=== PATIENT | female | born 1970 | race Caucasian/White ===

== ENCOUNTER 2024-08-24 12:14 | Emergency (ER) | payer OTHER, SELFPAY ==
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
[2024-08-24 12:39] VITALS: BP 126/76; PULSE 73; RESP 16; TEMP 36.4; O2SAT 100
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
== END 2024-08-24 16:15 | disposition home or self-care (01) ==
LOC: ANHED 16:15
PROVIDERS: Emergency Provider Physician Assistant; PCP Internal Medicine Geriatric Medicine
DX: S39.012A Strain of muscle, fascia and tendon of lower back, initial encounter (principal); S16.1XXA Strain of muscle, fascia and tendon at neck level, initial encounter; V89.2XXA Person injured in unspecified motor-vehicle accident, traffic, initial encounter
CPT/HCPCS: 70450; 72072; 72110; 72125; 99284